=== PATIENT | male | born 2000 | race Caucasian/White ===

== ENCOUNTER 2022-03-03 10:31 | Emergency (ER) | payer OTHER ==
[~2022-03-03] VITALS: Ht 170.2 cm; Wt 63.5 kg
[2022-03-03 10:34] VITALS: BP 128/69
--- NOTE | 2022-03-03 11:05 | NUR ---
X-Ray at bedside.
[2022-03-03] MEDS ORDERED: IBUPROFEN 600 MG TAB PO ONE (12:05)
--- NOTE | 2022-03-03 12:05 | NUR ---
21 y/o male bib mother from home, c/o right ankle pain post basketball injury yesterday. denies loc, syncope, and head injury. skin is pink/warm/dry. a&o x4, ambulates, unable to bear full weight on extremity. lungs clear bl, heart rate even and regular. pt denies any fever, cp, sob, or cough at this time. pt states pain is 8/10 at this time. vss. patient positioned for comfort. hob elevated. bed down. ermd made aware of pt. pmh: denies nka med: denies
--- NOTE | 2022-03-03 12:56 | NUR ---
Patient appears to be resting comfortably in bed. Vital Signs within normal limits. Respirations even and unlabored.
[2022-03-03] MEDS ORDERED: IBUP-2213 PO (13:38)
--- NOTE | 2022-03-03 13:45 | NUR ---
Patient discharged with v/s stable. Written and verbal after care instructions given and explained. Patient alert, oriented and verbalized understanding of instructions. Ambulatory with steady gait. All questions addressed prior to discharge. ID band removed. Patient advised to follow up with PMD. Rx of IBU given. Patient educated on indication of medication including possible reaction and side effects. Opportunity to ask questions provided and answered.
[2022-03-03 13:55] VITALS: BP 122/62
--- NOTE | 2022-03-03 13:55 | NUR ---
PRIVDED INSTRUCTION ON USE OF CRUTCHES AND APPLIED FABRICATED STIRRUP SPLINT ONTO RT ANKLE
== END 2022-03-03 13:45 | disposition home or self-care (01) ==
LOC: MED 10:31
DX: S93.401A Sprain of unspecified ligament of right ankle, initial encounter (principal); Z79.899 Other long term (current) drug therapy; X58.XXXA Exposure to other specified factors, initial encounter; Y93.89 Activity, other specified; Y92.89 Other specified places as the place of occurrence of the external cause; Y99.8 Other external cause status
CPT/HCPCS: 29515; 73610; 99283